=== PATIENT | female | born 1995 | race Two or more races ===

== ENCOUNTER 2018-06-11 10:36 | Inpatient (IN) | payer SELFPAY ==
[~2018-06-11] VITALS: Ht 157.5 cm; Wt 68.9 kg
[2018-06-11] MEDS ORDERED: TERBUTALINE 1 MG/ML VIAL. SQ PRN (12:15)
[2018-06-11] MEDS ORDERED: NALBUPHINE 10 MG/ML AMPUL. IV PRN (12:15)
[2018-06-11] MEDS ORDERED: CITRIC ACID/SODIUM CITRATE 30 ML SOLUTION. PO PRN (12:15)
[2018-06-11] MEDS ORDERED: OXYTOCIN 30 UNIT/500 ML PREMIX 500 ML IV PRN ×2 (12:15→15:00)
[2018-06-11] MEDS ORDERED: LIDOCAINE 1% PF 30 ML VIAL. INJ PRN (12:15)
[2018-06-11] MEDS ORDERED: fentaNYL PF VIAL 100 MCG/2 ML VIAL IV PRN (12:15)
[2018-06-11] MEDS ORDERED: 0.9 % SODIUM CHLORIDE 10 ML DISP.SYRIN. IV PRN (12:15)
[2018-06-11 12:27] VITALS: BP 105/63
[2018-06-11] MEDS: IV RINGERS,LACTATED 1000ML 1,000 ML IV PRN ×2 (12:59→18:13)
[2018-06-11] MEDS ORDERED: BETAMET ACET&NA PHOS 30 MG/5 ML VIAL. IM SCH (13:00)
[2018-06-11] MEDS ORDERED: AMPICILLIN SODIUM 2 GM in IV NORMAL SALINE 100ML 100 ML IV ONE (13:00)
[2018-06-11 13:25] LABS: BASO % 0 % (0-3); EOS % 0 % (0-3); HEMATOCRIT 31.7 % (36.0-47.0); HEMOGLOBIN 11.3 g/dL (12.0-15.5); LYMPH # 1.4 x10^3/uL (1.0-4.8); LYMPH % 17 % (24-48); MEAN CORPUSCULAR HEMOGLOBIN 36 pg (25-35); MEAN CORPUSCULAR HGB CONC 36 g/dL (31-37); MEAN CORPUSCULAR VOLUME 101 fL (79-100); MONO # 0.4 x10^3/uL (0.0-1.1); MONO % 5 % (0-9); NEUT # 6.5 x10^3uL (1.8-7.7); NEUT % 77 % (31-73); PLATELET COUNT 190 x10^3/uL (140-400); RED BLOOD COUNT 3.14 x10^6/uL (3.50-5.40); RED CELL DISTRIBUTION WIDTH 13.2 % (11.5-14.5); WHITE BLOOD COUNT 8.4 x10^3/uL (4.0-11.0)
[2018-06-11 13:26] LABS: BILIRUBIN,URINE NEGATIVE (NEG); CLARITY,URINE CLEAR; COLOR,URINE YELLOW; NITRITE,URINE NEGATIVE (NEG); PH,URINE 7.5; PROTEIN,URINE NEGATIVE (NEG-TRACE); UROBILINOGEN,URINE 0.2 mg/dL (0.2 mg/dL)
[2018-06-11 13:31] LABS: AMPHETAMINE/METHAMPHETAMINE NEG (NEG); BARBITURATES NEG (NEG); BENZODIAZEPINES NEG (NEG); CANNABINOIDS NEG (NEG); COCAINE NEG (NEG); METHADONE NEG (NEG); OPIATES NEG (NEG); PHENCYCLIDINE NEG (NEG)
--- NOTE | 2018-06-11 13:38 | RAD ---
Examination: Obstetric ultrasound moderate and 14 weeks COMPARISON: None available HISTORY: Premature rupture of membranes FINDINGS: Single living intrauterine identified with heart rate of 152 bpm. position is cephalic. Cervical length is 4.2 cm. Amniotic fluid index is 14.4 cm. The placenta is in the anterior wall. Biparietal diameter measures 8.53 cm corresponds to 34 weeks and 3 days Head circumference measures 31.8 cm corresponding to 35 weeks and 6 days. Abdominal circumference measures 30.5 cm corresponding to 34 weeks and 4 days. Femur length measures 6.67 cm corresponding to 34 weeks and 2 days. Estimated weight is: 2465 g Gestational age by this ultrasound is 34 weeks and 6 days. Estimated date of delivery by this ultrasound 07/17/2018. Cephalic index measures 77.3 Head circumference to abdominal circumference ratio 1.04 Femur length to biparietal diameter ratio 78.2 Femur length to head circumference 21.0 Femur length abdominal circumference 21.8. IMPRESSION: Single living intrauterine with heart rate of 152 bpm. Electronically signed by: Daniel Bae MD (06/11/2018 1:35 PM) [facility]
[2018-06-11 14:02] LABS: AMORPHOUS SEDIMENT,UR PRESENT /HPF; BACTERIA,URINE FEW /HPF (0-FEW); RBC,URINE 0 /HPF (0-2); SQUAMOUS EPITHELIAL CELL,UR OCC /LPF; WBC,URINE OCC /HPF (0-4)
[2018-06-11] MEDS: AMPICILLIN SODIUM 1 GM in IV NORMAL SALINE 50ML 50 ML IV SCH ×2 (16:53→20:32)
--- NOTE | 2018-06-11 20:16 | PDOC ---
GENERAL General: 22 yrs old female from [place] here for 3 weeks Primigravida EDC 07/17/18 35 weeks came to hospital with Ruptured Membranes. No contractions. VITAL SIGNS Vital Signs: Vital Signs Date Time Temp Pulse Resp B/P (MAP) Pulse Ox O2 Delivery O2 Flow Rate FiO2 06/11/18 12:27 99.0 102 18 105/63 (77) Room Air 99.0 ALLERGIES Allergies: Allergies Coded Allergies Type Severity Reaction Last Updated Verified No Known Drug Allergies 06/11/18 No MEDS Medications: Current Medications Medications (Trade) Dose Ordered Sig/Kamille Start Time Stop Time Status Last Admin Dose Admin Ampicillin Sodium 1 gm/Sodium Chloride 50 ml @ 100 mls/hr Q4H 06/11/18 17:00 06/11/18 16:53 100 MLS/HR Ampicillin Sodium 2 gm/Sodium Chloride 100 ml @ 200 mls/hr 1X ONCE 06/11/18 13:00 06/11/18 13:29 DC 06/11/18 12:59 200 MLS/HR Betamethasone Sodium Phosphate (Celestone Soluspan) 12 mg Q24H 06/11/18 13:00 06/12/18 13:01 06/11/18 13:00 12 MG Citric Acid/ Sodium Citrate (Bicitra) 30 ml 1X PRN PRN 06/11/18 12:15 06/12/18 12:14 Fentanyl Citrate (Fentanyl 2ml Vial) 100 mcg PRN Q30MIN PRN 06/11/18 12:15 Lidocaine HCl (Xylocaine 1% Pf 30ml Vial) 30 ml 1X PRN PRN 06/11/18 12:15 06/13/18 12:14 Nalbuphine HCl (Nubain) 10 mg PRN Q1HR PRN 06/11/18 12:15 Oxytocin/Sodium Chloride 500 ml @ 0 mls/hr CONT PRN 06/11/18 15:00 06/11/18 15:15 0 MLS/HR Ringer's Solution 1,000 ml @ 125 mls/hr Q8H PRN 06/11/18 12:30 06/11/18 18:13 125 MLS/HR Sodium Chloride (Normal Saline Flush) 3 ml QSHIFT PRN 06/11/18 12:15 Terbutaline Sulfate (Brethine) 0.25 mg 1X PRN PRN 06/11/18 12:15 06/12/18 12:14 LAB Lab: Laboratory Tests Test 06/11/18 10:55 06/11/18 12:55 Urine Color Yellow Urine Clarity Clear Urine pH 7.5 Urine Specific [place] 1.020 Urine Protein Negative mg/dL (NEG-TRACE) Urine Glucose (UA) Negative mg/dL (NEG) Urine Ketones (Stick) Negative mg/dL (NEG) Urine Blood Negative (NEG) Urine Nitrite Negative (NEG) Urine Bilirubin Negative (NEG) Urine Urobilinogen Dipstick 0.2 mg/dL (0.2 mg/dL) Urine Leukocyte Esterase Small (NEG) Urine RBC 0 /HPF (0-2) Urine WBC Occ /HPF (0-4) Urine Squamous Epithelial Cells Occ /LPF Urine Amorphous Sediment Present /HPF Urine Bacteria Few /HPF (0-FEW) Urine Opiates Screen Neg (NEG) Urine Methadone Screen Neg (NEG) Urine Barbiturates Neg (NEG) Urine Phencyclidine Screen Neg (NEG) Urine Amphetamine/Methamphetamine Neg (NEG) Urine Benzodiazepines Screen Neg (NEG) Urine Cocaine Screen Neg (NEG) Urine Cannabinoids Screen Neg (NEG) Urine Ethyl Alcohol Neg (NEG) White Blood Count 8.4 x10^3/uL (4.0-11.0) Red Blood Count 3.14 x10^6/uL (3.50-5.40) Hemoglobin 11.3 g/dL (12.0-15.5) Hematocrit 31.7 % (36.0-47.0) Mean Corpuscular Volume 101 fL (79-100) Mean Corpuscular Hemoglobin 36 pg (25-35) Mean Corpuscular Hemoglobin Concent 36 g/dL (31-37) Red Cell Distribution Width 13.2 % (11.5-14.5) Platelet Count 190 x10^3/uL (140-400) Neutrophils (%) (Auto) 77 % (31-73) Lymphocytes (%) (Auto) 17 % (24-48) Monocytes (%) (Auto) 5 % (0-9) Eosinophils (%) (Auto) 0 % (0-3) Basophils (%) (Auto) 0 % (0-3) Neutrophils # (Auto) 6.5 x10^3uL (1.8-7.7) Lymphocytes # (Auto) 1.4 x10^3/uL (1.0-4.8) Monocytes # (Auto) 0.4 x10^3/uL (0.0-1.1) Eosinophils # (Auto) 0.0 x10^3/uL (0.0-0.7) Basophils # (Auto) 0.0 x10^3/uL (0.0-0.2) Treponema pallidum Antibody Nonreactive (Nonreactive) Hepatitis B Surface Antigen Nonreactive (Nonreactive) ASSESSMENT & PLAN A&P 35 weeks with SROM. Clear fluid leaking. Cervix way posterior 1 to 2 cm. Will start her on IV Pitocin and further treatment. YESSI GARCIA MD Jun 11, 2018 20:16
[2018-06-11] MEDS ORDERED: BUTORPHANOL 2 MG/ML VIAL. IV PRN (21:30)
[2018-06-12] MEDS: AMPICILLIN SODIUM 1 GM in IV NORMAL SALINE 50ML 50 ML IV SCH ×2 (00:38→04:48)
[2018-06-12] MEDS ORDERED: ONDANSETRON PF 4 MG/2 ML VIAL. IV PRN (01:15)
[2018-06-12] MEDS ORDERED: ONDANSETRON PF 4 MG/2 ML VIAL. ONE (01:18)
[2018-06-12] MEDS: IV RINGERS,LACTATED 1000ML 1,000 ML IV PRN (01:23)
[2018-06-12] MEDS ORDERED: BENZOCAINE 20% TOPICAL AEROSOL SPRAY 57GM CAN. TP PRN (08:45)
[2018-06-12] MEDS ORDERED: HYDROCORTISONE 1% TOPICAL OINTMENT 30GM TUBE. TP PRN (08:45)
[2018-06-12] MEDS ORDERED: SIMETHICONE 80 MG TAB.CHEW PO PRN (08:45)
[2018-06-12] MEDS ORDERED: ZOLPIDEM 5 MG TABLET. PO PRN (08:45)
[2018-06-12] MEDS ORDERED: ACETAMINOPHEN 325 MG TABLET. PO PRN (08:45)
[2018-06-12] MEDS ORDERED: diphenhydrAMINE HCL 25 MG CAPSULE PO PRN (08:45)
[2018-06-12] MEDS ORDERED: 0.9 % SODIUM CHLORIDE 10 ML DISP.SYRIN. IV PRN (08:45)
[2018-06-12] MEDS ORDERED: MAG HYDROX/ALUMINUM HYD/SIMETH 30 ML ORAL.SUSP PO PRN (08:45)
[2018-06-12] MEDS ORDERED: oxyCODONE/APAP 5/325 1 TAB TABLET PO PRN (08:45)
[2018-06-12] MEDS ORDERED: PHENYLEPH/MINERAL OIL/PETROLAT RECTAL OINTMENT 28GM TUBE. RC PRN (08:45)
[2018-06-12] MEDS ORDERED: MAGNESIUM HYDROXIDE 2,400 MG/30 ML ORAL.SUSP. PO PRN (08:45)
[2018-06-12] MEDS ORDERED: OXYTOCIN 30 UNIT/500 ML PREMIX 500 ML IV PRN (08:45)
[2018-06-12] MEDS ORDERED: MMR per PROTOCOL. MC PRN (08:45)
--- NOTE | 2018-06-12 11:28 | OP ---
DATE OF SURGERY: DELIVERY NOTE DESCRIPTION OF PROCEDURE: This patient is a 22-year-old [place] lady who just came from [place] 3 weeks ago, has had no care here and admitted to the hospital in active labor and also leaking amniotic fluid, which was confirmed in the hospital and she also had a sonogram, which shows about 35 weeks' with a vertex presenting, and she did have an IV Pitocin induction and she made progress to complete dilatation, had a spontaneous vaginal delivery. A live male baby, weighing 5 pounds, was delivered at 08:45 a.m. on 06/12/2018 with the score of 8, 9 and 9, without any problem. Cord was clamped and cut. Cord blood was taken. Placenta removed spontaneous. No hemorrhage noted. She did receive Pitocin after delivery of the placenta. She did have a second-degree perineal tear. This was sutured with 2-0 chromic catgut sutures under local block and estimated blood loss about 100 mL. Baby was referred to industrial truck operator for further care and treatment. Mother tolerated the delivery well, no complications. YESSI GARCIA MD DR: MARISA/elisha JOB#: [id number] / [id number]
[2018-06-12] MEDS: IBUPROFEN 600 MG TABLET. PO SCH ×2 (11:31→20:45)
[2018-06-12 11:43] VITALS: BP 108/68
[2018-06-12 12:58] VITALS: BP 104/62
[2018-06-12 16:10] VITALS: BP 112/73
[2018-06-12] MEDS ORDERED: FERROUS SULFATE 325 MG TABLET. PO SCH (17:00)
[2018-06-12 20:18] VITALS: BP 94/60
[2018-06-12] MEDS ORDERED: INFLUENZA VAX SCREEN BY RX. MC PRN (20:30)
[2018-06-12] MEDS: DOCUSATE SODIUM 100 MG CAPSULE. PO PRN (20:46)
[2018-06-13 06:46] VITALS: BP 109/71
[2018-06-13] MEDS ORDERED: DIPHTH,PERTUSS(ACELL),TET TOX 0.5 ML DISP.SYRIN. VAX IM ONE (09:00)
[2018-06-13 10:20] VITALS: BP 110/70
[2018-06-13 15:20] VITALS: BP 112/72
--- NOTE | 2018-06-13 16:30 | PDOC ---
GENERAL General: Patient Doing ok No Problems VITAL SIGNS Vital Signs: Vital Signs Date Time Temp Pulse Resp B/P (MAP) Pulse Ox O2 Delivery O2 Flow Rate FiO2 06/13/18 06:46 97.6 88 18 109/71 (84) 97 Room Air 97.6 ALLERGIES Allergies: Allergies Coded Allergies Type Severity Reaction Last Updated Verified No Known Drug Allergies 06/11/18 No MEDS Medications: Current Medications Medications (Trade) Dose Ordered Sig/Kamille Start Time Stop Time Status Last Admin Dose Admin Acetaminophen (Tylenol) 650 mg PRN Q6HRS PRN 06/12/18 08:45 Al Hydroxide/Mg Hydroxide (Mylanta Plus Xs) 30 ml PRN Q4HRS PRN 06/12/18 08:45 Ampicillin Sodium 1 gm/Sodium Chloride 50 ml @ 100 mls/hr Q4H 06/11/18 17:00 06/12/18 13:19 DC 06/12/18 04:48 100 MLS/HR Ampicillin Sodium 2 gm/Sodium Chloride 100 ml @ 200 mls/hr 1X ONCE 06/11/18 13:00 06/11/18 13:29 DC 06/11/18 12:59 200 MLS/HR Benzocaine (Americaine) 1 spray PRN QID PRN 06/12/18 08:45 06/12/18 11:29 1 SPRAY Betamethasone Sodium Phosphate (Celestone Soluspan) 12 mg Q24H 06/11/18 13:00 06/12/18 13:01 DC 06/11/18 13:00 12 MG Butorphanol Tartrate (Stadol) 2 mg PRN Q2HRS PRN 06/11/18 21:30 06/12/18 03:26 2 MG Citric Acid/ Sodium Citrate (Bicitra) 30 ml 1X PRN PRN 06/11/18 12:15 06/12/18 12:14 DC Diphenhydramine HCl (Benadryl) 25 mg PRN Q6HRS PRN 06/12/18 08:45 Diphtheria/ Tetanus/Acell Pertussis (Boostrix) 0.5 ml ONCE ONCE 06/13/18 09:00 06/13/18 09:01 DC Docusate Sodium (Colace) 100 mg PRN BID PRN 06/12/18 08:45 06/12/18 20:46 100 MG Fentanyl Citrate (Fentanyl 2ml Vial) 100 mcg PRN Q30MIN PRN 06/11/18 12:15 Ferrous Sulfate (Feosol) 325 mg BIDWMEALS 06/12/18 17:00 06/13/18 10:09 325 MG Hydrocortisone (Cortaid) 1 quin PRN QID PRN 06/12/18 08:45 Ibuprofen (Motrin) 600 mg Q6HRS 06/12/18 12:00 06/12/18 20:45 600 MG Influenza Virus Vaccine (Afluria Trivalent [id number] Syringe) 0.5 ml ONCE ONCE 06/13/18 09:00 06/13/18 09:01 DC Info (Do NOT chart on this placeholder) 1 ea 1X PRN PRN 06/12/18 08:45 Info (FLU VACCINE SCREEN per RX) 1 each PRN 1X PRN 06/12/18 20:30 UNV Lidocaine HCl (Xylocaine 1% Pf 30ml Vial) 30 ml 1X PRN PRN 06/11/18 12:15 06/13/18 12:14 DC 06/12/18 11:32 30 ML Magnesium Hydroxide (Milk Of Magnesia) 2,400 mg PRN DAILY PRN 06/12/18 08:45 Nalbuphine HCl (Nubain) 10 mg PRN Q1HR PRN 06/11/18 12:15 06/12/18 07:19 10 MG Ondansetron HCl (Zofran) 4 mg STK-MED ONCE 06/12/18 01:18 06/12/18 01:19 DC Oxycodone/ Acetaminophen (Percocet 5/325) 2 tab PRN Q4HRS PRN 06/12/18 08:45 Oxytocin/Sodium Chloride 500 ml @ 62.5 mls/hr CONT PRN 06/12/18 08:45 06/12/18 16:44 DC Phenyleph/Shark Oil/Min Oil/Petrol (Preparation H) 1 quin PRN QID PRN 06/12/18 08:45 Ringer's Solution 1,000 ml @ 125 mls/hr Q8H PRN 06/11/18 12:30 06/12/18 01:23 125 MLS/HR Simethicone (Gas-X) 80 mg PRN AFTMEALHC PRN 06/12/18 08:45 Sodium Chloride (Normal Saline Flush) 10 ml QSHIFT PRN 06/12/18 08:45 Terbutaline Sulfate (Brethine) 0.25 mg 1X PRN PRN 06/11/18 12:15 06/12/18 12:14 DC Zolpidem Tartrate (Ambien) 5 mg PRN QHS PRN 06/12/18 08:45 LAB Lab: Laboratory Tests Test 06/13/18 06:00 Hematocrit 30.7 % (36.0-47.0) ASSESSMENT & PLAN A&P Abdomen soft Uterus Firm Lochia Normal. Plan dismissal in YESSI Lara MD Jun 13, 2018 16:30
[2018-06-13 23:00] VITALS: BP 103/61
[2018-06-14] MEDS: IBUPROFEN 600 MG TABLET. PO SCH (05:57)
[2018-06-14 06:28] VITALS: BP 104/63
--- NOTE | 2018-06-14 09:57 | PATHOLOGY ---
[facility] Accession Number: [id number] . 01 Material submitted: . PLACENTA . 01 Clinician provided ICD-10: O80 . 01 Clinical history: . , premature rupture of membranes, please see delivery summary. . 02 Diagnosis: 445 gram late placenta of an estimated 35 weeks gestation with attached membranes and umbilical cord: - Acute chorionitis, focal. - Villitis of unknown etiology, multifocal. LBQ/06/14/2018 . 02 Comment: . Sections of the placental membranes show focal acute chorionitis with only focal infiltration of the subamniotic stroma. Sections of the placental disc show multifocal significant chronic villitis. This is comprised of varying sized clusters of chorionic villi which show infiltration of the villous stroma by lymphocytes and histiocytes.There are no viral inclusions identified. The findings are supportive of the diagnosis of villitis of unknown etiology. (JPM/db; 06/13/18) . 02 Electronically signed: . Eran Tristan MD, Pathologist NPI- [id number] . 01 Gross description: . Received in formalin labeled "Quigley, June, placenta" is a zuniga placenta with attached membranes and umbilical cord. The placental disc measures 17.0 x 14.5 x 2.3 cm. The membranes are transparent and thin with the site of membrane rupture 4.5 cm from the placental margin. The membranes have marginal insertion. The umbilical cord measures 30.1 cm in length, 1.4 cm in diameter, contains three vessels and inserts eccentrically, 1.1 cm from the closest placental margin. There are no true knots in the umbilical cord. The trimmed placental weight is 445 grams. The surface is blue-cabral with minimal subchorionic fibrin. Amnion nodosum is not present. Cysts are not present. The maternal surface has intact cotyledons and no basal hemorrhage. Sectioning through the placental disc reveals no calcification or infarcts. Sections are submitted as follows: . A1 proximal and distal umbilical cord A2 membranes, rolled A3 special service representative peripheral placenta A4 special service representative central placenta ([facility]; 06/12/2018) SYC/SYC . 02 Pathologist provided ICD-10: O43.893, Z37.0, Z3A.35 . 02 CPT . 955851 Specimen Comment: A courtesy copy of this report has been sent to Specimen Comment: [phone]. Specimen Comment: Report sent to Performed at: 01 [facility] [address], [place] [id number] MD Maximo Sol MD Phone: [phone] Performed at: 02 [facility] [address], [place] [id number] MD Eran Tristan MD Phone: [phone]
--- NOTE | 2018-06-14 10:58 | PDOC ---
GENERAL General: Patient doing ok VITAL SIGNS Vital Signs: Vital Signs Date Time Temp Pulse Resp B/P (MAP) Pulse Ox O2 Delivery O2 Flow Rate FiO2 06/14/18 06:28 98.2 67 16 104/63 (77) 98.2 06/13/18 23:00 98 Room Air ALLERGIES Allergies: Allergies Coded Allergies Type Severity Reaction Last Updated Verified No Known Drug Allergies 06/11/18 No MEDS Medications: Current Medications Medications (Trade) Dose Ordered Sig/Kamille Start Time Stop Time Status Last Admin Dose Admin Acetaminophen (Tylenol) 650 mg PRN Q6HRS PRN 06/12/18 08:45 Al Hydroxide/Mg Hydroxide (Mylanta Plus Xs) 30 ml PRN Q4HRS PRN 06/12/18 08:45 Ampicillin Sodium 1 gm/Sodium Chloride 50 ml @ 100 mls/hr Q4H 06/11/18 17:00 06/12/18 13:19 DC 06/12/18 04:48 100 MLS/HR Ampicillin Sodium 2 gm/Sodium Chloride 100 ml @ 200 mls/hr 1X ONCE 06/11/18 13:00 06/11/18 13:29 DC 06/11/18 12:59 200 MLS/HR Benzocaine (Americaine) 1 spray PRN QID PRN 06/12/18 08:45 06/12/18 11:29 1 SPRAY Betamethasone Sodium Phosphate (Celestone Soluspan) 12 mg Q24H 06/11/18 13:00 06/12/18 13:01 DC 06/11/18 13:00 12 MG Butorphanol Tartrate (Stadol) 2 mg PRN Q2HRS PRN 06/11/18 21:30 06/12/18 03:26 2 MG Citric Acid/ Sodium Citrate (Bicitra) 30 ml 1X PRN PRN 06/11/18 12:15 06/12/18 12:14 DC Diphenhydramine HCl (Benadryl) 25 mg PRN Q6HRS PRN 06/12/18 08:45 Diphtheria/ Tetanus/Acell Pertussis (Boostrix) 0.5 ml ONCE ONCE 06/13/18 09:00 06/13/18 09:01 DC 06/13/18 20:34 0.5 ML Docusate Sodium (Colace) 100 mg PRN BID PRN 06/12/18 08:45 06/12/18 20:46 100 MG Fentanyl Citrate (Fentanyl 2ml Vial) 100 mcg PRN Q30MIN PRN 06/11/18 12:15 Ferrous Sulfate (Feosol) 325 mg BIDWMEALS 06/12/18 17:00 06/13/18 20:23 DC 06/13/18 10:09 325 MG Hydrocortisone (Cortaid) 1 quin PRN QID PRN 06/12/18 08:45 Ibuprofen (Motrin) 600 mg Q6HRS 06/12/18 12:00 06/14/18 05:57 600 MG Influenza Virus Vaccine (Afluria Trivalent [id number] Syringe) 0.5 ml ONCE ONCE 06/13/18 09:00 06/13/18 09:01 DC 06/13/18 20:32 0.5 ML Info (Do NOT chart on this placeholder) 1 ea 1X PRN PRN 06/12/18 08:45 Info (FLU VACCINE SCREEN per RX) 1 each PRN 1X PRN 06/12/18 20:30 UNV Lidocaine HCl (Xylocaine 1% Pf 30ml Vial) 30 ml 1X PRN PRN 06/11/18 12:15 06/13/18 12:14 DC 06/12/18 11:32 30 ML Magnesium Hydroxide (Milk Of Magnesia) 2,400 mg PRN DAILY PRN 06/12/18 08:45 Nalbuphine HCl (Nubain) 10 mg PRN Q1HR PRN 06/11/18 12:15 06/12/18 07:19 10 MG Ondansetron HCl (Zofran) 4 mg STK-MED ONCE 06/12/18 01:18 06/12/18 01:19 DC Oxycodone/ Acetaminophen (Percocet 5/325) 2 tab PRN Q4HRS PRN 06/12/18 08:45 Oxytocin/Sodium Chloride 500 ml @ 62.5 mls/hr CONT PRN 06/12/18 08:45 06/12/18 16:44 DC Phenyleph/Shark Oil/Min Oil/Petrol (Preparation H) 1 quin PRN QID PRN 06/12/18 08:45 Ringer's Solution 1,000 ml @ 125 mls/hr Q8H PRN 06/11/18 12:30 06/12/18 01:23 125 MLS/HR Simethicone (Gas-X) 80 mg PRN AFTMEALHC PRN 06/12/18 08:45 Sodium Chloride (Normal Saline Flush) 10 ml QSHIFT PRN 06/12/18 08:45 Terbutaline Sulfate (Brethine) 0.25 mg 1X PRN PRN 06/11/18 12:15 06/12/18 12:14 DC Zolpidem Tartrate (Ambien) 5 mg PRN QHS PRN 06/12/18 08:45 ASSESSMENT & PLAN A&P vital signs stable NO FEVER pt likes to go home today YESSI GARCIA MD Jun 14, 2018 10:58
[2018-06-14 12:15] VITALS: BP 126/82
[2018-06-14 12:20] VITALS: BP 112/85
[2018-06-14] MEDS: DOCUSATE SODIUM 100 MG CAPSULE. PO PRN (16:55)
[2018-06-14 17:16] VITALS: BP 110/81
== END 2018-06-14 17:20 | disposition home or self-care (01) | DRG 807 ==
LOC: 3 SO LND 10:36 → OBSVTOIN 12:24 → 3 NORTH 06-12 11:35
PROVIDERS: ADMIT Obstetrics & Gynecology; ATTEND Obstetrics & Gynecology
PROC: 10E0XZZ Delivery of Products of Conception, External Approach (ICD-10-PCS; principal; 2018-06-12)
PROC: 0KQM0ZZ Repair Perineum Muscle, Open Approach (ICD-10-PCS; 2018-06-12)
PROC: 3E033VJ Introduction of Other Hormone into Peripheral Vein, Percutaneous Approach (ICD-10-PCS; 2018-06-12)
PROC: 3E0234Z Introduction of Serum, Toxoid and Vaccine into Muscle, Percutaneous Approach (ICD-10-PCS; 2018-06-13)
PROC: 3E0234Z Introduction of Serum, Toxoid and Vaccine into Muscle, Percutaneous Approach (ICD-10-PCS; 2018-06-13)
DX: O70.1 Second degree perineal laceration during delivery (principal); Z37.0 Single live birth; Z3A.35 35 weeks gestation of pregnancy; Z23 Encounter for immunization
CPT/HCPCS: 36415; 76805; 80307; 81001; 85014; 85025; 86592; 86703; 86762; 86850; 86900; 86901; 87086; 87340; 87653; 88305; 90471; 90715; 90756; G0378; G0379; J0290; J0702; J2300; J2405; J2590; J7120; G0479; Q2035